=== PATIENT | female | born 1985 | race American Indian/Alaskan Native ===

== ENCOUNTER 2022-01-28 06:18 | Emergency (ER) | payer SELFPAY ==
--- NOTE | 2022-01-28 07:00 | Emergency Department Report ---
ED Psych HPI - General Chief Complaint: Psych Stated Complaint: MH Time Seen by Provider: 01/28/22 06:36 Source: EMS Mode of arrival: Stretcher - History of Present Illness Initial Comments: 36-year-old female with a history of anxiety and bipolar was picked up by the EMS on the street with report that patient was running back and forth at the traffic light. When initially asked by EMS patient refused to give her name or her birthdate. She finally gave the EMS her anut name and phone number. The aunt was able give some history about patient. Pt however denies having any p sychiatry problem but says she takes Haldol. Patient is busy fidgeting around during examination. She denies any suicidal or homicidal ideation. She also mentioned that her boyfriend just got out of assisted and today is his birthday. No other modifying or associated factors reported. - Related Data Allergies Allergy/AdvReac Type Severity Reaction Status Date / Time No Known Allergies Allergy Unverified 01/28/22 06:27 ED Review of Systems ROS: Stated complaint: MH Other details as noted in HPI Comment: All other systems reviewed and negative Psychiatric: as per HPI, anxiety ED Past Medical Hx - Past Medical History Previous Medical History?: Yes Hx Psychiatric Treatment: Yes (bipolar, depression) - Surgical History Past Surgical History?: No - Social History Smoking Status: Unknown if ever smoked ED Physical Exam - General Limitations: No Limitations General appearance: alert, in no apparent distress, anxious - Head Head exam: Present: normal inspection - Eye Eye exam: Present: normal appearance - ENT ENT exam: Present: normal exam, normal orophraynx, mucous membranes dry - Neck Neck exam: Present: normal inspection, full ROM. Absent: tenderness - Respiratory Respiratory exam: Present: normal lung sounds bilaterally. Absent: respiratory distress, accessory muscle use - Cardiovascular Cardiovascular Exam: Present: regular rate, normal rhythm, normal heart sounds - GI/Abdominal GI/Abdominal exam: Present: soft, normal bowel sounds. Absent: distended, tenderness - Extremities Exam Extremities exam: Present: normal inspection. Absent: pedal edema - Back Exam Back exam: Absent: tenderness - Neurological Exam Neurological exam: Present: alert, oriented X3 - Psychiatric Psychiatric exam: Present: normal mood, anxious - Skin Skin exam: Present: warm, normal color ED Course Vital Signs 01/28/22 01/28/22 06:27 07:09 Temperature 98.3 F Pulse Rate 96 H 74 Respiratory 18 17 Rate Blood Pressure 120/74 Blood Pressure 130/79 [Left] O2 Sat by Pulse 99 100 Oximetry - Reevaluation(s) Reevaluation #1: 01/28/22 12:26 I was informed that patient escaped the ED premises but was brought back few mi nutes later. ED Medical Decision Making - Lab Data Result diagrams: 01/28/22 08:00 01/28/22 08:00 - Medical Decision Making Here with depression feeling with no suicide or homicidal ideation--differential diagnosis, including but not limited to: Encounter for behavioral health screening examination, encounter for medical screening examination--Due to these will go ahead and other routine labs studies including CBC, CMP and UA with UDS and thyroid profile in anticipation for mental health evaluation. Assessment and plan: here with concern with depressive feeling and suicidal ideation --but noted with reassuring vital signs, in no acute distress, who is cooperative, ANO x3, not homicidal or suicidal. At this point in time, this patient is cleared medically for psychiatry evaluation and recommendation. I have ordered mental health evaluation. Will go ahead and order typical laboratory studies in anticipation of mental health requests. Pt will be held until cleared medication for psychiatry evaluation Critical care attestation.: If time is entered above; I have spent that time in minutes in the direct care of this critically ill patient, excluding procedure time. ED Disposition Clinical Impression: Acute psychosis Disposition: [address] [place] [address] Is pt being admited?: No Does the pt Need Aspirin: No Condition: Stable Additional Instructions: Professional and Agency Contacts To help Resolve Crises (19/12) [place] Crisis Line: Suicide Prevention Line: Crisis Text Line: Text START to 339517 Emergency: 911 Outpatient COMMUNITY Behavioral Health Resources: [place]: [facility] [address] [place], [place] [address] [facility] [address] [place] [address] Monday thru Monday - 8am - 5pm Call to schedule an assessment for mental health and substance abuse programs [facility] Address: [address], [place] [address] Monday thru Monday- 7am-2pm [facility] Address: [address], [place] [address] Monday thru Monday: 8:30AM-5PM OUTPATIENT MENTAL HEALTH RESOURCES [facility], [facility] Carlton Randall MD: [address] [place] [address] [place], [place] [id number] [facility]: [facility] [address] [place] [address] [place] [address] [phone] [facility]: [facility] Healthcare: [address] [facility] [address] [facility] [place] [address] [facility] [id number] [facility]: Isidro Stinson MD: [id number] [facility] [address] [facility] [id number] [facility]: [address] [place], [place] [id number] [phone] [place] CRISIS AND ACCESS LINE: Referrals: CAREN VILLAR MD [Primary Care Provider] - 3-5 Days Time of Disposition: 12:27
[2022-01-28] MEDS ORDERED: HALOPERIDOL LACTATE 5 MG/1 ML INJ ONE (07:34)
[2022-01-28] MEDS ORDERED: HALOPERIDOL LACTATE 5 MG/1 ML INJ IM ONE (07:34)
[2022-01-28 07:59] LABS: Benzodiazepines Screen,Urine Negative; Methadone Screen,Urine Negative; Opiate Screen,Urine Negative
[2022-01-28 08:03] LABS: Amorphous Crystals,Urine Few; Mucus,Urine FEW /HPF
[2022-01-28 08:26] LABS: Color,Urine Straw (Yellow)
[2022-01-28 08:27] LABS: HCG Qualitative,Urine Negative (Negative); WBC,Urine < 1.0 /HPF (0.0-6.0)
[2022-01-28 08:32] LABS: Basophils % (Auto) 0.8 % (0.0-1.8); Eosinophils # (Auto) 0.2 K/mm3 (0.0-0.4); Eosinophils % (Auto) 3.6 % (0.0-4.3); Hematocrit 33.2 % (30.3-42.9); Hemoglobin 10.7 gm/dl (10.1-14.3); Lymphocytes # (Auto) 1.5 K/mm3 (1.2-5.4); Lymphocytes % (Auto) 29.4 % (13.4-35.0); Mean Corpuscular HGB Conc 32 % (30-34); Mean Corpuscular Volume 76 fl (79-97); Monocytes # (Auto) 0.6 K/mm3 (0.0-0.8); Monocytes % (Auto) 11.4 % (0.0-7.3); Platelet Count 234 K/mm3 (140-440); Red Blood Count 4.35 M/mm3 (3.65-5.03)
[2022-01-28 08:34] LABS: Amphetamine Screen,Urine Positive; Cannabinoid Screen,Urine Positive; Cocaine Screen,Urine Positive
[2022-01-28 08:36] LABS: Alanine Aminotransferase 26 units/L (7-56); Albumin 3.9 g/dL (3.9-5); Blood Urea Nitrogen 10 mg/dL (7-17); Calcium 8.8 mg/dL (8.4-10.2); Hemolysis Index 5
[2022-01-28 08:37] LABS: BUN/Creatinine Ratio 14
[2022-01-28] MEDS ORDERED: POTASSIUM CHLORIDE ER 20 MEQ TAB PO ONE ×2 (11:33→20:30)
[2022-01-28] MEDS ORDERED: ZIPRASIDONE MESYLATE 20 MG VIAL IM ONE (16:17)
[2022-01-28] MEDS ORDERED: diphenhydrAMINE 50 MG/ML VIAL IM ONE (16:17)
[2022-01-29 09:09] VITALS: BP 142/83
--- NOTE | 2022-01-29 10:31 | Consultation ---
History of Present Illness - Reason for Consult Consult date: 01/29/22 Reason for consult: mental health evaluation - History of Present Psychiatric Illness ED Note: 36-year-old female with a history of anxiety and bipolar was picked up by the EMS on the street with report that patient was running back and forth at the traffic light. When initially asked by EMS patient refused to give her name or her birthdate. She finally gave the EMS her anut name and phone number. The aunt was able give some history about patient. Pt however denies having any psychiatry problem but says she takes Haldol. Patient is busy fidgeting around during examination. She denies any suicidal or homicidal ideation. She also mentioned that her boyfriend just got out of shelter and today is his birthday. No other modifying or associated factors reported. Attempted to see patient yesterday but was told by the nurse that she eloped; the patient returned to the ED after going [facility] the [facility] across the street. The patient seen today. She presents with disorganized thoughts and flight of ideas. UDS is positive for Amphetamines, Cocaine and THC. PAST PSYCHIATRIC HISTORY: PAST MEDICAL HISTORY: Family Psychiatric History: None reported SOCIAL HISTORY REVIEW OF SYSTEMS MENTAL STATUS Assessment: (1) Bipolar disorder (2) Polysubstance abuse Treatment Plan DC 1013 Continue home medications Zyprexa 2.5mg po BID The patient is to get first dose of meds prior to leaving. Benefits and possible SE were explained to patient. She verbalizes understanding. Risks, benefits and alternatives of medications discussed with the patient, questions answered and consent obtained from patient. PSYCHOTHERAPY: Supportive psychotherapy provided MEDICAL: Per primary team DELIRIUM PRECAUTIONS: Please re-orient patient frequently, keep lights on during the day, and minimize benzodiazepines and opiates as these medications could worsen patient's confusion. 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 FOLLOW-UP: Will follow. Thank you for the consult. Please contact with any questions and/or concerns Case discussed with Dr. Strong who agrees with current disposition Medications and Allergies Medications and Allergies Allergies Allergy/AdvReac Type Severity Reaction Status Date / Time No Known Allergies Allergy Unverified 01/28/22 06:27 Mental Status Exam - Vital signs Last Vital Signs Temp 97.9 F 01/29/22 09:06 Pulse 62 01/29/22 09:06 Resp 20 01/29/22 09:06 BP 142/83 01/29/22 09:06 Pulse Ox 100 01/29/22 09:06 Results Result Diagrams: 01/28/22 08:00 01/28/22 08:00 All other labs normal.
--- NOTE | 2022-01-29 11:42 | Event Note ---
Date: 01/29/22 vss , no events overnight , medically cleared , assessed by psych , recommends acute psych inpatient
[2022-01-30] MEDS ORDERED: diphenhydrAMINE 50 MG/ML VIAL IM ONE (04:30)
[2022-01-30] MEDS ORDERED: ZIPRASIDONE MESYLATE 20 MG VIAL IM ONE (04:30)
--- NOTE | 2022-01-30 10:14 | Progress Note ---
Subjective - Reason for Consult Consult date: 01/30/22 Reason for consult: mental health evaluation - Chief Complaint Chief complaint: The patient was seen this morning. She is refusing to engage. Per nurse, "Pt received yelling and screaming at he shift change and this has continued thru out the a.m." REVIEW OF SYSTEMS MENTAL STATUS Assessment: (1) Bipolar disorder (2) Polysubstance abuse Treatment Plan DC 1013 Continue home medications Zyprexa 2.5mg po BID The patient is to get first dose of meds prior to leaving. Benefits and possible SE were explained to patient. She verbalizes understanding. Risks, benefits and alternatives of medications discussed with the patient, questions answered and consent obtained from patient. PSYCHOTHERAPY: Supportive psychotherapy provided MEDICAL: Per primary team DELIRIUM PRECAUTIONS: Please re-orient patient frequently, keep lights on during the day, and minimize benzodiazepines and opiates as these medications could worsen patient's confusion. 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 FOLLOW-UP: Will follow. Thank you for the consult. Please contact with any questions and/or concerns Case discussed with Dr. Strong who agrees with current disposition Medications and Allergies Mental Status Exam - Vital signs Last Vital Signs Temp 98.2 F 01/30/22 09:41 Pulse 88 01/30/22 09:41 Resp 14 01/30/22 09:41 BP 142/83 01/29/22 09:06 Pulse Ox 100 01/30/22 09:41
== END 2022-01-30 11:55 ==
LOC: ED 06:18
DX: F23 Brief psychotic disorder (principal); Z20.822 Contact with and (suspected) exposure to COVID-19; Z79.899 Other long term (current) drug therapy
CPT/HCPCS: 36415; 80053; 80307; 81001; 81025; 84703; 85025; 96372; 99284; J1200; J1630; J3486; U0003; 80320; G0480